=== PATIENT | male | born 1975 | race African-American/Black ===

== ENCOUNTER 2022-04-06 06:03 | Observation (INO) ==
[2022-04-06] MEDS ORDERED: TORADOL 60 MG VIAL IM ONE (06:38)
[2022-04-06] MEDS ORDERED: TORADOL 60 MG VIAL ONE (06:39)
--- NOTE | 2022-04-06 06:49 | DR.EXTPAIN ---
HPI Time seen Time Seen by Provider: 04/06/22 06:41 PCP Primary Care Physician: FABRICIO Complaint/Symptoms Chief Complaint Doctor Comments: C/O NECK AND LEFT SHOULDER PAIN FOR 3 DAYS.DENIES INJURY TO NECK OF LEFT SHOULDER. Chief Complaint:: PT IN ED VIA STRETCHER PER [facility] EMS WITH C/O NECK AND BACK PAIN RADIATING DOWN LEFT ARM X SEVERAL DAYS WORSE TONIGHT. DENIES INJURY. Self Treatment fo Chief Complaint: PT WAS GIVEN IBUPROFEN AT APPROX 0345 COVID-19 Coronavirus risk:travel/contact w/high risk person: No Has patient experienced Coronavirus symptoms: No Source History Provided: Patient, EMS and Law Enforcement Mode of arrival Mode of Arrival: Stretcher Timing Onset of Chief Complaint: 04/02/22 PMH PMH Past Medical History: No Past Surgical History: No Surgical History: No History Family History History of Family Medical Conditions: No Social History Does patient currently use any type of tobacco product: No Have you used tobacco products in the last 12 months: No Type of Tobacco Use: None Does any household member use tobacco: No Alcohol Use: None Do you use any recreational Drugs:: No Lives With: Other Lives Where: [facility] Travel Risk Coronavirus risk:travel/contact w/high risk person: No Has patient experienced Coronavirus symptoms: No Infectious screening In the last 2 months have you had wt loss of >10#?: NO Have you had fever, night sweats or hemotysis?: No Have you traveled outside the country in the last 6 months?: No Isolation: Standard ROS Review of Systems Constitutional: Other (NECK AND L SHOULDER PAIN) Eyes: No Symptoms Reported ENTM: No Symptoms Reported Respiratoy: No Symptoms Reported Cardiovascular: No Symptoms Reported Gastrointestinal/Abdominal: No Symptoms Reported Genitourinary: No Symptoms Reported Neurological: No Symptoms Reported Musculoskeletal: Neck Pain and Shoulder (L SHOULDER PAIN) Integumentary: No Symptoms Reported Hematologic/Lymphatic: No Symptoms Reported Endocrine: No Symptoms Reported Psychiatric: No Symptoms Reported PE Vital Signs Vitals: Temperature 98.2 F Pulse Rate 66 Respiratory Rate 16 Blood Pressure [Left Arm] 116/76 Blood Pressure 136/76 O2 Sat by Pulse Oximetry 98 General General Appearance: In Distress (MODERATE DISTRESS) Head Head Exam: Normal Inspection Eyes Eye exam: Normal Appearance, PERRL and EOMI Neck Neck Exam: Trachea Midline and Tenderness (MID CERVICAL PAIN) Chest Chest Inspection: Normal Inspection and Symmetric Chest Wall Rise Respiratory Respiratory Exam: Normal Lung Sounds Bilat Respiratory Exam: Bilateral: Clear to Auscultation Cardiovascular Cardiovascular Exam: Regular Rate and Normal Rhythm Abdominal Exam Abdominal Exam: Normal Inspection, Normal Bowel Sounds and Soft Extremities Extremities Exam: Normal Inspection Upper Extremities Shoulder Exam: Normal Inspection and Tenderness (L SHOULDER) Arm Exam: Normal Inspection Elbow Exam: Normal Inspection Forearm Exam: Normal Inspection Hand Exam: Normal Inspection Neuromotor Exam: Normal Exam Lower Extremities Hip/Pelvis Exam: Normal Inspection Upper Leg Exam: Normal Inspection Knee Exam: Normal Inspection Lower Leg Exam: Normal Inspection Ankle Exam: Normal Inspection Foot/Toe Exam: Normal Inspection Gait Exam: Not Tested/Not Observed Back Back Exam: Normal Inspection and Full ROM Neurological Neurological Exam: Alert, Oriented X3 and CN II-XII Intact Psychiatric Psychiatric Exam: Depressed MDM Differential Diagnosis Differential Diagnosis: Sprain (L SHOULDER) and Other (DJD C-SPINE,) COURSE Treatment Treatment: PATIENT WAS SIGNED OUT TO DR LERNER. WAS GIVEN TORADOL 60MG IM FOR NECK PAIN. ROR Labs Reviewed Result Diagrams: 04/07/22 04:48 04/07/22 04:48 Laboratory: WBC 9.3 X10^3/uL (3.6-10.0) 04/06/22 09:40 RBC 4.44 X10^6/uL (4.7-6.0) L 04/06/22 09:40 Hgb 13.8 g/dL (13.5-18.0) 04/06/22 09:40 Hct 39.7 % (42.0-54.0) L 04/06/22 09:40 MCV 89.4 fL (80.0-100.0) 04/06/22 09:40 MCH 31.0 pg (27.0-34.0) 04/06/22 09:40 MCHC 34.7 g/dL (33.0-35.0) 04/06/22 09:40 RDW 12.6 % (11.6-16.5) 04/06/22 09:40 Plt Count 244 X10^3/uL (150.0-450.0) 04/06/22 09:40 MPV 7.4 fL (7.4-11.0) 04/06/22 09:40 Neut % (Auto) 69.5 % (42.0-75.0) 04/06/22 09:40 Lymph % (Auto) 25.0 % (21.0-51.0) 04/06/22 09:40 [place] % (Auto) 4.3 % (0.0-13.0) 04/06/22 09:40 Eos % (Auto) 0.5 % (0.9-2.9) L 04/06/22 09:40 Baso % (Auto) 0.7 % (0.2-1.0) 04/06/22 09:40 Neut # (Auto) 6.5 x10^3/uL (2.2-4.8) H 04/06/22 09:40 Lymph # (Auto) 2.3 X10^3/uL (1.3-2.9) 04/06/22 09:40 [place] # (Auto) 0.4 x10^3/uL (0.3-0.8) 04/06/22 09:40 Eos # (Auto) 0.1 x10^3/uL (0.0-0.2) 04/06/22 09:40 Baso # (Auto) 0.1 X10^3/uL (0.0-0.1) 04/06/22 09:40 Absolute Nucleated RBC 0.1 /100WBC 04/06/22 09:40 Sodium 140 mmol/L (136-145) 04/06/22 09:40 Corrected Sodium TNP 04/06/22 09:40 Potassium 3.8 mmol/L (3.5-5.1) 04/06/22 09:40 Chloride 103 mmol/L (98-107) 04/06/22 09:40 Carbon Dioxide 30.3 mmol/L (21-32) 04/06/22 09:40 BUN 9 mg/dL (7-18) 04/06/22 09:40 Creatinine 1.08 mg/dL (0.70-1.30) 04/06/22 09:40 Est GFR (MDRD) Af Amer > 60 (>60) 04/06/22 09:40 Est GFR (MDRD) Non-Af > 60 (>60) 04/06/22 09:40 Glucose 94 mg/dL (65-99) 04/06/22 09:40 Calcium 8.5 mg/dL (8.5-10.1) 04/06/22 09:40 Corrected Calcium TNP 04/06/22 09:40 Total Bilirubin 0.30 mg/dL (0.2-1.0) 04/06/22 09:40 AST 20 Units/L (15-37) 04/06/22 09:40 ALT 31 Units/L (12-78) 04/06/22 09:40 Alkaline Phosphatase 66 Units/L (46-116) 04/06/22 09:40 Total Protein 6.6 g/dL (6.4-8.2) 04/06/22 09:40 Albumin 3.4 g/dL (3.4-5.0) 04/06/22 09:40 Globulin 3.2 g/dL (2.5-4.5) 04/06/22 09:40 Albumin/Globulin Ratio 1.1 Ratio (1.1-2.1) 04/06/22 09:40 Specimen Type Random urine 04/06/22 07:00 Urine Color Yellow (YELLOW) 04/06/22 07:00 Urine Appearance Clear (CLEAR) 04/06/22 07:00 Urine pH 7.0 (5.0 - 8.0) 04/06/22 07:00 Ur Specific Midnight 1.010 (1.000-1.030) 04/06/22 07:00 Urine Protein Negative (NEGATIVE) 04/06/22 07:00 Urine Glucose (UA) Negative (NEGATIVE) 04/06/22 07:00 Urine Ketones Negative (NEGATIVE) 04/06/22 07:00 Urine Blood 1+ (NEGATIVE) 04/06/22 07:00 Urine Nitrite Negative (NEGATIVE) 04/06/22 07:00 Urine Bilirubin Negative (NEGATIVE) 04/06/22 07:00 Urine Urobilinogen Normal (NORMAL) 04/06/22 07:00 Ur Leukocyte Esterase Negative (NEGATIVE) 04/06/22 07:00 Urine RBC 0-2 /HPF (0-3) 04/06/22 07:00 Urine WBC 0-2 /HPF (0-5) 04/06/22 07:00 Ur Squamous Epith Cells Rare /HPF (NEGATIVE) 04/06/22 07:00 Urine Bacteria Negative /HPF (NEGATIVE) 04/06/22 07:00 Ur Culture Indicated? No/not indicated 04/06/22 07:00 Opioid Opioid Risk Tool Age (Juan box if 16-45): No History of Preadolescent Sexual Abuse: No Total: 0 Total Score Risk Category: Low Risk Copyright: Siva LEWIS predicting aberrant behaviors Discharge Plan Diagnosis Discharge Problem: Cervical spine pain Cervical spinal cord injury Qualifiers: Encounter type: initial encounter Qualified Code(s): S14.109A - Unspecified injury at unspecified level of cervical spinal cord, initial encounter Discharge Plan Patient Disposition: ADMITTED INPATIENT Condition: Stable Orders to Discharge Patient Discharge Orders: Discharge (Routine); Ordered 04/07/22 Ordered By: PERLA CORADO
[2022-04-06 07:08] LABS: BILIRUBIN,URINE NEGATIVE (NEGATIVE); BLOOD/HEMOGLOBIN,URINE 1+ (NEGATIVE); GLUCOSE, URINE NEGATIVE (NEGATIVE); KETONES,URINE NEGATIVE (NEGATIVE); LEUKOCYTE ESTERASE ,URINE NEGATIVE (NEGATIVE); NITRITES,URINE NEGATIVE (NEGATIVE); PROTEIN,URINE NEGATIVE (NEGATIVE); UROBILINOGEN,URINE NORMAL (NORMAL)
--- NOTE | 2022-04-06 07:13 | CT ---
HISTORYNECK AND SHOULDER PAINSTUDYCT C-spine without IV contrastCOMPARISONNoneTECHNIQUEMultiple axial images of the cervical spine were obtained from the skull base to the thoracic inlet without administration of IV contrast. Sagittal and coronal reformats were performed and reviewed. Dose reduction techniques including Automated Exposure Control (AEC) and adjustment of mA and kV were utilized.FINDINGSLordosis is reversed which could be due to muscular spasm or positioning.No subluxation.There is left-sided disc protrusion suspected at C5-6. There is probable cord contact. Cord compression is not excluded. There is broad central disc bulge at C6-7 that may contact the cord.No prevertebral edema.No C-spine fracture is seen.IMPRESSIONLeft-sided disc protrusion is suspected at C5-6. This likely contacts the cord and could cause cord compression.Likely broad central disc bulge is seen at C6-7.Electronically signed by: Antwan Romero (Apr 06, 2022 07:12:29)
[2022-04-06 07:21] LABS: APPEARANCE,URINE CLEAR (CLEAR); BACTERIA,URINE NEGATIVE /HPF (NEGATIVE); COLOR,URINE YELLOW (YELLOW); RBC,URINE 0-2 /HPF (0-3); SQUAMOUS EPITHELIAL CELL,UR RARE /HPF (NEGATIVE)
[2022-04-06] MEDS ORDERED: APRESOLINE INJ 20 MG VIAL IVP ONE (07:57)
[2022-04-06] MEDS ORDERED: ZOFRAN INJ 4 MG VIAL IVP ONE (07:57)
--- NOTE | 2022-04-06 09:23 | DR.EXTPAIN ---
HPI Time seen Time Seen by Provider: 04/06/22 06:41 PCP Primary Care Physician: FABRICIO Complaint/Symptoms Chief Complaint:: PT IN ED VIA STRETCHER PER [facility] EMS WITH C/O NECK AND BACK PAIN RADIATING DOWN LEFT ARM X SEVERAL DAYS WORSE TONIGHT. DENIES INJURY. Self Treatment fo Chief Complaint: PT WAS GIVEN IBUPROFEN AT APPROX 0345 COVID-19 Coronavirus risk:travel/contact w/high risk person: No Has patient experienced Coronavirus symptoms: No Source History Provided: Patient, EMS and Law Enforcement Mode of arrival Mode of Arrival: Stretcher Timing Onset of Chief Complaint: 04/02/22 PMH PMH Past Medical History: No Past Surgical History: No Surgical History: No History Family History History of Family Medical Conditions: No Social History Does patient currently use any type of tobacco product: No Have you used tobacco products in the last 12 months: No Type of Tobacco Use: None Does any household member use tobacco: No Alcohol Use: None Do you use any recreational Drugs:: No Lives With: Other Lives Where: [facility] Travel Risk Coronavirus risk:travel/contact w/high risk person: No Has patient experienced Coronavirus symptoms: No Infectious screening In the last 2 months have you had wt loss of >10#?: NO Have you had fever, night sweats or hemotysis?: No Have you traveled outside the country in the last 6 months?: No Isolation: Standard PE Vital Signs Vitals: Temperature 98.2 F Pulse Rate 68 Respiratory Rate 16 Blood Pressure [Left Arm] 116/76 Blood Pressure 117/59 O2 Sat by Pulse Oximetry 98 ROR Labs Reviewed Result Diagrams: 04/06/22 09:40 04/06/22 09:40 Laboratory: WBC 9.3 X10^3/uL (3.6-10.0) 04/06/22 09:40 RBC 4.44 X10^6/uL (4.7-6.0) L 04/06/22 09:40 Hgb 13.8 g/dL (13.5-18.0) 04/06/22 09:40 Hct 39.7 % (42.0-54.0) L 04/06/22 09:40 MCV 89.4 fL (80.0-100.0) 04/06/22 09:40 MCH 31.0 pg (27.0-34.0) 04/06/22 09:40 MCHC 34.7 g/dL (33.0-35.0) 04/06/22 09:40 RDW 12.6 % (11.6-16.5) 04/06/22 09:40 Plt Count 244 X10^3/uL (150.0-450.0) 04/06/22 09:40 MPV 7.4 fL (7.4-11.0) 04/06/22 09:40 Neut % (Auto) 69.5 % (42.0-75.0) 04/06/22 09:40 Lymph % (Auto) 25.0 % (21.0-51.0) 04/06/22 09:40 [place] % (Auto) 4.3 % (0.0-13.0) 04/06/22 09:40 Eos % (Auto) 0.5 % (0.9-2.9) L 04/06/22 09:40 Baso % (Auto) 0.7 % (0.2-1.0) 04/06/22 09:40 Neut # (Auto) 6.5 x10^3/uL (2.2-4.8) H 04/06/22 09:40 Lymph # (Auto) 2.3 X10^3/uL (1.3-2.9) 04/06/22 09:40 [place] # (Auto) 0.4 x10^3/uL (0.3-0.8) 04/06/22 09:40 Eos # (Auto) 0.1 x10^3/uL (0.0-0.2) 04/06/22 09:40 Baso # (Auto) 0.1 X10^3/uL (0.0-0.1) 04/06/22 09:40 Absolute Nucleated RBC 0.1 /100WBC 04/06/22 09:40 Sodium 140 mmol/L (136-145) 04/06/22 09:40 Corrected Sodium TNP 04/06/22 09:40 Potassium 3.8 mmol/L (3.5-5.1) 04/06/22 09:40 Chloride 103 mmol/L (98-107) 04/06/22 09:40 Carbon Dioxide 30.3 mmol/L (21-32) 04/06/22 09:40 BUN 9 mg/dL (7-18) 04/06/22 09:40 Creatinine 1.08 mg/dL (0.70-1.30) 04/06/22 09:40 Est GFR (MDRD) Af Amer > 60 (>60) 04/06/22 09:40 Est GFR (MDRD) Non-Af > 60 (>60) 04/06/22 09:40 Glucose 94 mg/dL (65-99) 04/06/22 09:40 Calcium 8.5 mg/dL (8.5-10.1) 04/06/22 09:40 Corrected Calcium TNP 04/06/22 09:40 Total Bilirubin 0.30 mg/dL (0.2-1.0) 04/06/22 09:40 AST 20 Units/L (15-37) 04/06/22 09:40 ALT 31 Units/L (12-78) 04/06/22 09:40 Alkaline Phosphatase 66 Units/L (46-116) 04/06/22 09:40 Total Protein 6.6 g/dL (6.4-8.2) 04/06/22 09:40 Albumin 3.4 g/dL (3.4-5.0) 04/06/22 09:40 Globulin 3.2 g/dL (2.5-4.5) 04/06/22 09:40 Albumin/Globulin Ratio 1.1 Ratio (1.1-2.1) 04/06/22 09:40 Specimen Type Random urine 04/06/22 07:00 Urine Color Yellow (YELLOW) 04/06/22 07:00 Urine Appearance Clear (CLEAR) 04/06/22 07:00 Urine pH 7.0 (5.0 - 8.0) 04/06/22 07:00 Ur Specific [place] 1.010 (1.000-1.030) 04/06/22 07:00 Urine Protein Negative (NEGATIVE) 04/06/22 07:00 Urine Glucose (UA) Negative (NEGATIVE) 04/06/22 07:00 Urine Ketones Negative (NEGATIVE) 04/06/22 07:00 Urine Blood 1+ (NEGATIVE) 04/06/22 07:00 Urine Nitrite Negative (NEGATIVE) 04/06/22 07:00 Urine Bilirubin Negative (NEGATIVE) 04/06/22 07:00 Urine Urobilinogen Normal (NORMAL) 04/06/22 07:00 Ur Leukocyte Esterase Negative (NEGATIVE) 04/06/22 07:00 Urine RBC 0-2 /HPF (0-3) 04/06/22 07:00 Urine WBC 0-2 /HPF (0-5) 04/06/22 07:00 Ur Squamous Epith Cells Rare /HPF (NEGATIVE) 04/06/22 07:00 Urine Bacteria Negative /HPF (NEGATIVE) 04/06/22 07:00 Ur Culture Indicated? No/not indicated 04/06/22 07:00 Opioid Opioid Risk Tool Age (Juan box if 16-45): No History of Preadolescent Sexual Abuse: No Total: 0 Total Score Risk Category: Low Risk Copyright: Siva LEWIS predicting aberrant behaviors Discharge Plan Diagnosis Discharge Problem: Cervical spine pain Cervical spinal cord injury Qualifiers: Encounter type: initial encounter Qualified Code(s): S14.109A - Unspecified injury at unspecified level of cervical spinal cord, initial encounter Discharge Plan Patient Disposition: ADMITTED INPATIENT Condition: Stable Orders to Discharge Patient Discharge Orders: Transfer (Routine); Ordered 04/06/22 Ordered By: JATINDER LERNER
[2022-04-06 09:51] LABS: BASOPHILS # (AUTO) 0.1 X10^3/uL (0.0-0.1); BASOPHILS % (AUTO) 0.7 % (0.2-1.0); EOSINOPHILS # (AUTO) 0.1 x10^3/uL (0.0-0.2); EOSINOPHILS % (AUTO) 0.5 % (0.9-2.9); HEMATOCRIT 39.7 % (42.0-54.0); HEMOGLOBIN 13.8 g/dL (13.5-18.0); LYMPHOCYTES # (AUTO) 2.3 X10^3/uL (1.3-2.9); MEAN CORPUSCULAR HGB CONC 34.7 g/dL (33.0-35.0); MEAN CORPUSCULAR VOLUME 89.4 fL (80.0-100.0); MEAN PLATELET VOLUME 7.4 fL (7.4-11.0); MONOCYTES # (AUTO) 0.4 x10^3/uL (0.3-0.8); MONOCYTES % (AUTO) 4.3 % (0.0-13.0); NEUTROPHILS # (AUTO) 6.5 x10^3/uL (2.2-4.8); NEUTROPHILS % (AUTO) 69.5 % (42.0-75.0); RED BLOOD COUNT 4.44 X10^6/uL (4.7-6.0); RED CELL DISTRIBUTION WIDTH 12.6 % (11.6-16.5); WHITE BLOOD COUNT 9.3 X10^3/uL (3.6-10.0)
[2022-04-06 10:02] LABS: ALANINE AMINOTRANSFERASE 31 Units/L (12-78); ALBUMIN 3.4 g/dL (3.4-5.0); ALKALINE PHOSPHATASE 66 Units/L (46-116); ASPARTATE AMINO TRANSFERASE 20 Units/L (15-37); BLOOD UREA NITROGEN 9 mg/dL (7-18); CALCIUM 8.5 mg/dL (8.5-10.1); CARBON DIOXIDE 30.3 mmol/L (21-32); CHLORIDE 103 mmol/L (98-107); CREATININE 1.08 mg/dL (0.70-1.30); SODIUM 140 mmol/L (136-145); TOTAL PROTEIN 6.6 g/dL (6.4-8.2); eGFR NON BLACK RACES > 60 (>60)
[2022-04-06] MEDS ORDERED: TORADOL 30 MG VIAL IVP PRN (13:33)
[2022-04-06 13:44] VITALS: BMI 29.9
[2022-04-06] MEDS: NS 1,000 ML IV 1,000 ML IV SCH (13:45)
[2022-04-06] MEDS: SOLU-Medrol 40 MG VIAL IVP SCH ×2 (16:17→21:04)
[2022-04-06] MEDS: TORADOL 30 MG VIAL IVP SCH (16:17)
[2022-04-06] MEDS: ZANAFLEX PO PRN (20:34)
[2022-04-07] MEDS: TORADOL 30 MG VIAL IVP SCH ×2 (00:14→08:15)
[2022-04-07] MEDS: SOLU-Medrol 40 MG VIAL IVP SCH (05:04)
[2022-04-07] MEDS: NS 1,000 ML IV 1,000 ML IV SCH (05:04)
[2022-04-07] MEDS: ZANAFLEX PO PRN (05:05)
[2022-04-07 05:15] LABS: BASOPHILS % (AUTO) 0.2 % (0.2-1.0); HEMOGLOBIN 13.7 g/dL (13.5-18.0); LYMPHOCYTES # (AUTO) 0.7 X10^3/uL (1.3-2.9); LYMPHOCYTES % (AUTO) 7.2 % (21.0-51.0); MEAN CORPUSCULAR HEMOGLOBIN 30.6 pg (27.0-34.0); MEAN CORPUSCULAR HGB CONC 34.3 g/dL (33.0-35.0); MEAN CORPUSCULAR VOLUME 89.2 fL (80.0-100.0); MEAN PLATELET VOLUME 7.5 fL (7.4-11.0); MONOCYTES # (AUTO) 0.1 x10^3/uL (0.3-0.8); MONOCYTES % (AUTO) 0.8 % (0.0-13.0); NEUTROPHILS # (AUTO) 9.1 x10^3/uL (2.2-4.8); NEUTROPHILS % (AUTO) 91.8 % (42.0-75.0); RED BLOOD COUNT 4.48 X10^6/uL (4.7-6.0); WHITE BLOOD COUNT 9.9 X10^3/uL (3.6-10.0)
[2022-04-07 05:24] LABS: ALANINE AMINOTRANSFERASE 28 Units/L (12-78); ALBUMIN 3.2 g/dL (3.4-5.0); ALKALINE PHOSPHATASE 66 Units/L (46-116); ASPARTATE AMINO TRANSFERASE 16 Units/L (15-37); BLOOD UREA NITROGEN 14 mg/dL (7-18); CALCIUM 8.6 mg/dL (8.5-10.1); CARBON DIOXIDE 25.9 mmol/L (21-32); CHLORIDE 104 mmol/L (98-107); COR CA(FOR HYPOALB) 9.2 mg/dL (8.5-10.1); COR NA(FOR HYPERGLY) 141 mmol/L (136-145); CREATININE 1.04 mg/dL (0.70-1.30); SODIUM 139 mmol/L (136-145); TOTAL PROTEIN 6.4 g/dL (6.4-8.2); eGFR NON BLACK RACES > 60 (>60)
[2022-04-07 05:25] LABS: PLATELET MORPHOLOGY COMMENT NORMAL (NORMAL)
[2022-04-07 08:20] VITALS: BP 169/70
== END 2022-04-07 10:20 | disposition left against medical advice (07) ==
LOC: MED/SURG 06:03 → ER 06:03 → MED/SURG 12:54
PROVIDERS: ADMIT Internal Medicine; ATTEND Internal Medicine
DX: M79.602 Pain in left arm; M25.512 Pain in left shoulder; M50.323 Other cervical disc degeneration at C6-C7 level; R20.0 Anesthesia of skin; Z53.29 Procedure and treatment not carried out because of patient's decision for other reasons; M54.2 Cervicalgia